=== PATIENT | male | born 1950 | race Caucasian/White ===

== ENCOUNTER 2022-02-09 23:33 | Emergency (ER) | payer MEDICARE, BC ==
[~2022-02-09] VITALS: Ht 185.4 cm; Wt 83.5 kg
[2022-02-10 00:57] LABS: BASOPHILS ABSOLUTE AUTO 0.03 K/mm3 (0.00-0.23); BASOPHILS PERCENT AUTO 0 % (0-2); EOSINOPHILS ABSOLUTE AUTO 0.16 K/mm3 (0.00-0.68); EOSINOPHILS PERCENT AUTO 2 % (0-6); Hematocrit 39.3 % (37.0-53.0); Hemoglobin 13.3 g/dL (13.5-17.5); IMMATURE GRAN ABSOLUTE AUTO 0.03 K/mm3 (0.00-0.10); IMMATURE GRAN PERCENT AUTO 0 % (0-1); LYMPHOCYTES ABSOLUTE AUTO 2.31 K/mm3 (0.84-5.20); LYMPHOCYTES PERCENT AUTO 25 % (21-46); MONOCYTES ABSOLUTE AUTO 0.66 K/mm3 (0.16-1.47); MONOCYTES PERCENT AUTO 7 % (4-13); Mean Corpuscular HGB 33.5 pg (26.0-34.0); Mean Corpuscular HGB Conc 33.8 g/dL (31.5-36.5); Mean Corpuscular Volume 99 fL (80-100); Mean Platelet Volume 10.3 fL (9.1-12.4); NEUTROPHILS ABSOLUTE AUTO 6.11 K/mm3 (1.96-9.15); NEUTROPHILS PERCENT AUTO 66 % (41-73); Platelet Count 230 K/mm3 (150-400); RDW Coefficient Variation 13.4 % (11.7-14.2); RDW Standard Deviation 48.6 fL (35.1-46.3); Red Blood Cell Count 3.97 M/mm3 (4.30-5.90)
[2022-02-10 03:03] LABS: Albumin, Blood 3.4 g/dL (3.4-5.0); Bilirubin, Total 0.1 mg/dL (0.1-1.0); Bun/Creatinine Ratio 20.9 (12.0-20.0); Creatinine, Blood 0.77 mg/dL (0.60-1.20); Globulin, Blood 3.5 g/dL (2.2-4.0); Potassium, Blood 3.8 mmol/L (3.5-5.5); Total Protein, Blood 6.9 g/dL (6.4-8.2)
== END 2022-02-10 06:40 | disposition home or self-care (01) ==
LOC: ER 23:33
PROVIDERS: Student in an Organized Health Care Education/Training Program
DX: R42 Dizziness and giddiness (principal); R07.89 Other chest pain; R00.2 Palpitations; I10 Essential (primary) hypertension; R06.02 Shortness of breath; F17.210 Nicotine dependence, cigarettes, uncomplicated
CPT/HCPCS: 36415; 71046; 80053; 84484; 85025; 93005; 93010; 99285-25

== ENCOUNTER 2022-03-18 23:24 | Inpatient (IN) | payer MEDICARE, BC ==
[~2022-03-18] VITALS: Ht 185.4 cm; Wt 85.9 kg
[2022-03-19] MEDS ORDERED: PHENY100ER PO (00:22)
[2022-03-19] MEDS ORDERED: Nexium40 MG PO (00:23)
[2022-03-19] MEDS ORDERED: Avapro150 MG (00:23)
[2022-03-19] MEDS ORDERED: TAMS.4ER PO (00:23)
[2022-03-19] MEDS ORDERED: Zocor20 MG PO (00:23)
[2022-03-19] MEDS ORDERED: DICL75ER PO (00:24)
[2022-03-19 00:26] LABS: BASOPHILS ABSOLUTE AUTO 0.05 K/mm3 (0.00-0.23); BASOPHILS PERCENT AUTO 1 % (0-2); EOSINOPHILS ABSOLUTE AUTO 0.17 K/mm3 (0.00-0.68); EOSINOPHILS PERCENT AUTO 2 % (0-6); Hematocrit 40.6 % (37.0-53.0); IMMATURE GRAN ABSOLUTE AUTO 0.02 K/mm3 (0.00-0.10); IMMATURE GRAN PERCENT AUTO 0 % (0-1); LYMPHOCYTES ABSOLUTE AUTO 2.03 K/mm3 (0.84-5.20); LYMPHOCYTES PERCENT AUTO 20 % (21-46); MONOCYTES PERCENT AUTO 8 % (4-13); Mean Corpuscular HGB 33.8 pg (26.0-34.0); Mean Corpuscular HGB Conc 34.5 g/dL (31.5-36.5); Mean Corpuscular Volume 98 fL (80-100); Mean Platelet Volume 10.1 fL (9.1-12.4); NEUTROPHILS ABSOLUTE AUTO 7.32 K/mm3 (1.96-9.15); NEUTROPHILS PERCENT AUTO 71 % (41-73); Platelet Count 223 K/mm3 (150-400); RDW Standard Deviation 46.9 fL (35.1-46.3); Red Blood Cell Count 4.14 M/mm3 (4.30-5.90); White Blood Cell Count 10.39 K/mm3 (4.00-11.30)
[2022-03-19 00:40] LABS: Albumin, Blood 3.5 g/dL (3.4-5.0); Albumin/Globulin Ratio 0.9 (0.8-1.8); Bilirubin, Total 0.2 mg/dL (0.1-1.0); Bun/Creatinine Ratio 24.4 (12.0-20.0); Calcium, Blood 8.6 mg/dL (8.5-10.1); Creatinine, Blood 0.7 mg/dL (0.60-1.20); Globulin, Blood 3.8 g/dL (2.2-4.0); Potassium, Blood 3.7 mmol/L (3.5-5.5); Total Protein, Blood 7.3 g/dL (6.4-8.2)
[2022-03-19 04:56] LABS: Anti-Xa UFH, PHA Monitoring <0.10 IU/mL; International Normalized Ratio 1.01; Prothrombin Time Results 10.6 Sec (9.7-11.5)
[2022-03-19 05:48] LABS: BASOPHILS ABSOLUTE AUTO 0.03 K/mm3 (0.00-0.23); BASOPHILS PERCENT AUTO 0 % (0-2); EOSINOPHILS PERCENT AUTO 1 % (0-6); Hematocrit 39.6 % (37.0-53.0); Hemoglobin 13.6 g/dL (13.5-17.5); IMMATURE GRAN ABSOLUTE AUTO 0.03 K/mm3 (0.00-0.10); IMMATURE GRAN PERCENT AUTO 0 % (0-1); LYMPHOCYTES ABSOLUTE AUTO 1.56 K/mm3 (0.84-5.20); LYMPHOCYTES PERCENT AUTO 17 % (21-46); MONOCYTES ABSOLUTE AUTO 0.45 K/mm3 (0.16-1.47); MONOCYTES PERCENT AUTO 5 % (4-13); Mean Corpuscular HGB 33.8 pg (26.0-34.0); Mean Corpuscular HGB Conc 34.3 g/dL (31.5-36.5); Mean Corpuscular Volume 99 fL (80-100); Mean Platelet Volume 10.5 fL (9.1-12.4); NEUTROPHILS ABSOLUTE AUTO 6.91 K/mm3 (1.96-9.15); NEUTROPHILS PERCENT AUTO 76 % (41-73); Platelet Count 221 K/mm3 (150-400); RDW Standard Deviation 47.5 fL (35.1-46.3); Red Blood Cell Count 4.02 M/mm3 (4.30-5.90); White Blood Cell Count 9.08 K/mm3 (4.00-11.30)
[2022-03-19 06:09] LABS: Albumin, Blood 3.4 g/dL (3.4-5.0); Albumin/Globulin Ratio 0.9 (0.8-1.8); Bilirubin, Total 0.3 mg/dL (0.1-1.0); Bun/Creatinine Ratio 22.1 (12.0-20.0); Calcium, Blood 8.7 mg/dL (8.5-10.1); Creatinine, Blood 0.68 mg/dL (0.60-1.20); Globulin, Blood 3.9 g/dL (2.2-4.0); Potassium, Blood 4.2 mmol/L (3.5-5.5); Total Protein, Blood 7.3 g/dL (6.4-8.2)
--- NOTE | 2022-03-19 06:38 | NUR ---
PATIENT ALERT AND ORIENTED, ARRIVED FROM ED AT 0435, INDEPENDENT, TELE PLACED ON PATIENT AND SR @78, ROOM AIR, 20 RAC, STARTED HEPARIN GTT AT 15 UNITS, PATIENT ADMITTED FOR A NSTEMI, NO CHEST PAIN AT THIS TIME, TROP , CURRENT EVERYDAY CIGARETT AND MARIJUANA SMOKER, NPO EXCEPT MEDS. NO EVENTS
--- NOTE | 2022-03-19 19:14 | NUR ---
PT ALERT NO S/S OF ACUTE DISTRESS, SAFETY MEASURES IN PLACE. REPORT GIVEN TO ON COMING NURSE.
[2022-03-19] MEDS ORDERED: DIAZ2 PO (20:18)
--- NOTE | 2022-03-19 20:24 | NUR ---
SPOKE WITH [facility] ([facility]) REGARDING PATIENTS REQUEST FOR A DOSE OF VALIUM. PATIENT TAKES 4MG PO HS AT HOME AND I UPDATED MED REC. ORDERS GIVEN FOR ONE TIME DOSE
--- NOTE | 2022-03-20 06:28 | NUR ---
PATIENT ALERT AND ORIENTED AND PLEASANT, INDEPENDENT, ROOM AIR, SR ON TELE, 20 RAC W/ HEPARIN AT 15 UNITS, VALIUM ONE TIME DOSE GIVEN AND MEDICATION REC UPDATED WITH HOME MED, PATIENT NPO FOR BUSINESS SUPPORT LIAISON PROCEDURE TODAY. NO EVENTS OVERNIGHT
--- NOTE | 2022-03-20 07:18 | NUR ---
STOPPED HEPARIN GTT AT 0700 FOR CARDIAC PROCEDURE TODAY
--- NOTE | 2022-03-20 07:24 | NUR ---
CALLED PHARMACY AND UPDATED THAT HEPARIN GTT STOPPED AT 0700. PHARMACY ASKED US TO NOTIFY THEM WHEN PATIENT COMES BACK TO FLOOR FROM AUTOMATIC PROFILE SHAPER OPERATOR, SO HEPARIN CAN BE RESTARTED. INFORMED GEOVANNY HYDE
--- NOTE | 2022-03-20 10:42 | NUR ---
TRANSFER PATIENT TAKEN TO PATIENT ACCOUNTS MANAGER THIS MORNING. CONFIRMED NPO. AT BEDSIDE AND WENT WITH PATIENT. BELONGINGS SENT WITH PATIENT. PATIENT BEING TRANSFERRED TO PCU 03 AFTER PROCEDURE. REPORT GIVEN TO BARRETT WORKMAN. PATIENT IS A&O X4, IND IN THE ROOM. PHARMACY INFORMED OF HEP. DRIP BEING STOPPED THIS MORNING.
--- NOTE | 2022-03-20 18:07 | NUR ---
END OF SHIFT: PATIENT IS ALERT AND ORIENTED. RIGHT RADIAL SITE IS RECOVERED. NO OOZING, TENDERNESS, OR HEMATOMA. SOME SORENESS THROUGH ELBOW BUT IS IMPROVING. PATIENT IS ON RA NO ISSUES OF DISTRESS. PATIENT HAS BEEN PLEASANT COOPERATIVE WITH CARE, ABLE TO MAKE NEEDS KNOWN. NO CONCERNS FROM THIS RN OR THE RCA STENTING AT THIS TIME.
--- NOTE | 2022-03-21 01:22 | NUR ---
PHYSICIAN COMMUNICATION NOTIFIED DR TENORIO THAT PATIENT'S BLOOD PRESSURE CAME DOWN TO 131/67 AFTER ADMINISTERING A ONE TIME DOSE OF 2.[address] TENORIO WILL MONITOR FOR NOW AND RECHECK BLOOD PRESSURE AGAIN IN ONE HOUR.
--- NOTE | 2022-03-21 05:12 | NUR ---
PHYSICIAN COMMUNICATION NOTIFIED DR TENORIO THAT PATIENT'S BLOOD PRESSURE WAS 147/68. DR TENORIO TO PUT IN ORDERS.
--- NOTE | 2022-03-21 06:11 | NUR ---
SHIFT SUMMARY PATIENT ALERT AND ORIENTED. MEDICATED PER EMAR FOR PAIN AND BLOOD PRESSURE. WILL CONTINUE TO MONITOR. PATIENT HAD NO COMPLAINTS OF SHORTNESS OF BREATH. CALL LIGHT WITHIN REACH.
[2022-03-21] MEDS ORDERED: ASPI81CH PO (10:53)
[2022-03-21] MEDS ORDERED: METO25ER PO (10:53)
[2022-03-21] MEDS ORDERED: CLOP75 PO (10:54)
--- NOTE | 2022-03-21 12:04 | NUR ---
PT DISCHARGE TO HOME WITH DISCHARGE ORDERS, PRESCRIPTION SENT TO [facility], ALL DISCHARGE INSTRUCTIONS AND NEW MEDICATIONS DISCLOSED WITH BOTH AND PT, BOTH VERBALIZED UNDERSTANDING, TO FOLLOW-UP WITH PCP AND VITREO RETINAL SURGEON WITHIN 2 WEEKS. RIGHT RADIAL SITE CARE INSTRUCTIONS PROVIDED. ALL BELONGINGS SENT WITH THE PT, ACCOMPANIED VIA WHEELCHAIR FOR TRANSPORT
== END 2022-03-21 11:28 | disposition home or self-care (01) | DRG 247 ==
LOC: ER 23:24 → MEDS 03-19 04:11 → ERHOLD 03-19 04:11 → MEDS 03-19 04:39 → PCU 03-20 10:35 → ENPENDDIS 03-21 09:33 → PCU 03-21 11:28
PROVIDERS: Emergency Medicine; Family Medicine; ADMIT Internal Medicine
PROC: 027034Z Dilation of Coronary Artery, One Artery with Drug-eluting Intraluminal Device, Percutaneous Approach (ICD-10-PCS; principal; 2022-03-20)
PROC: 02F03ZZ Fragmentation in Coronary Artery, One Artery, Percutaneous Approach (ICD-10-PCS; 2022-03-20)
PROC: 4A023N7 Measurement of Cardiac Sampling and Pressure, Left Heart, Percutaneous Approach (ICD-10-PCS; 2022-03-20)
PROC: B211YZZ Fluoroscopy of Multiple Coronary Arteries using Other Contrast (ICD-10-PCS; 2022-03-20)
PROC: B24BZZ3 Ultrasonography of Heart with Aorta, Intravascular (ICD-10-PCS; 2022-03-20)
DX: I21.4 Non-ST elevation (NSTEMI) myocardial infarction (principal); Z28.21 Immunization not carried out because of patient refusal; G40.909 Epilepsy, unspecified, not intractable, without status epilepticus; K21.9 Gastro-esophageal reflux disease without esophagitis; I10 Essential (primary) hypertension; F17.210 Nicotine dependence, cigarettes, uncomplicated; N40.0 Benign prostatic hyperplasia without lower urinary tract symptoms; F32.A Depression, unspecified; F41.9 Anxiety disorder, unspecified; I25.10 Atherosclerotic heart disease of native coronary artery without angina pectoris; Z87.19 Personal history of other diseases of the digestive system; Z98.890 Other specified postprocedural states; Z79.899 Other long term (current) drug therapy
CPT/HCPCS: 36415; 71045; 76937; 80053; 80185; 80186; 84484; 85025; 85347; 85520; 85610; 93005; 93010; 93306; 93454; 96374; 96376; 99152; 99153; 99285-25; A9270; C1725; C1761; C1769; C1874; C1887; C1894; C9113; C9600; C9602; G0378; J1170; J1644; J1885; J2250; J3010; J7030; J7050; Q9967

== ENCOUNTER 2022-03-27 22:21 | Emergency (ER) | payer MEDICARE, BC ==
[~2022-03-27] VITALS: Ht 185.4 cm; Wt 83.9 kg
[~2022-03-27 22:21] MED LIST: ASPI81CH PO; Avapro150 MG; CLOP75 PO; DIAZ2 PO; DICL75ER PO; METO25ER PO; Nexium40 MG PO; PHENY100ER PO; TAMS.4ER PO; Zocor20 MG PO
[2022-03-27 23:00] LABS: BASOPHILS ABSOLUTE AUTO 0.08 K/mm3 (0.00-0.23); BASOPHILS PERCENT AUTO 1 % (0-2); EOSINOPHILS ABSOLUTE AUTO 0.14 K/mm3 (0.00-0.68); EOSINOPHILS PERCENT AUTO 2 % (0-6); Hematocrit 38.5 % (37.0-53.0); Hemoglobin 13.2 g/dL (13.5-17.5); IMMATURE GRAN ABSOLUTE AUTO 0.02 K/mm3 (0.00-0.10); IMMATURE GRAN PERCENT AUTO 0 % (0-1); LYMPHOCYTES ABSOLUTE AUTO 2.48 K/mm3 (0.84-5.20); LYMPHOCYTES PERCENT AUTO 33 % (21-46); MONOCYTES ABSOLUTE AUTO 0.65 K/mm3 (0.16-1.47); MONOCYTES PERCENT AUTO 9 % (4-13); Mean Corpuscular HGB 33.3 pg (26.0-34.0); Mean Corpuscular HGB Conc 34.3 g/dL (31.5-36.5); Mean Corpuscular Volume 97 fL (80-100); Mean Platelet Volume 10.3 fL (9.1-12.4); NEUTROPHILS ABSOLUTE AUTO 4.19 K/mm3 (1.96-9.15); NEUTROPHILS PERCENT AUTO 55 % (41-73); Platelet Count 251 K/mm3 (150-400); RDW Coefficient Variation 12.7 % (11.7-14.2); RDW Standard Deviation 45.2 fL (35.1-46.3); Red Blood Cell Count 3.96 M/mm3 (4.30-5.90); White Blood Cell Count 7.56 K/mm3 (4.00-11.30)
[2022-03-27 23:17] LABS: Albumin, Blood 3.7 g/dL (3.4-5.0); Bilirubin, Total 0.2 mg/dL (0.1-1.0); Bun/Creatinine Ratio 23.7 (12.0-20.0); Calcium, Blood 8.6 mg/dL (8.5-10.1); Creatinine, Blood 0.76 mg/dL (0.60-1.20); Globulin, Blood 3.7 g/dL (2.2-4.0); Potassium, Blood 3.5 mmol/L (3.5-5.5); Total Protein, Blood 7.4 g/dL (6.4-8.2)
== END 2022-03-28 02:08 | disposition home or self-care (01) ==
LOC: ER 22:21
PROVIDERS: Student in an Organized Health Care Education/Training Program
DX: R07.9 Chest pain, unspecified (principal); I10 Essential (primary) hypertension; N40.0 Benign prostatic hyperplasia without lower urinary tract symptoms; I25.10 Atherosclerotic heart disease of native coronary artery without angina pectoris; I25.2 Old myocardial infarction; F17.210 Nicotine dependence, cigarettes, uncomplicated; Z95.5 Presence of coronary angioplasty implant and graft; Z88.8 Allergy status to other drugs, medicaments and biological substances; Z79.899 Other long term (current) drug therapy; Z79.82 Long term (current) use of aspirin
CPT/HCPCS: 36415; 71045; 80053; 84484; 85025; 93005; 93010; 99285-25; A9270

== ENCOUNTER → 2022-09-25 | Outpatient (CLI) | payer MEDICARE, BC ==
[~2022-09-25] MED LIST changes: -Avapro150 MG; +Avapro150 MG PO; +NITR.4SL SL
== END | disposition home or self-care (01) ==
LOC: LAB SHORT 12:48 → LAB 12:48
DX: E11.9 Type 2 diabetes mellitus without complications (principal)
CPT/HCPCS: 83036

== ENCOUNTER 2022-12-09 20:17 | Emergency (ER) | payer MEDICARE, BC ==
[~2022-12-09] VITALS: Ht 185.4 cm; Wt 94.3 kg
[2022-12-09 20:30] VITALS: BP 178/75
== END 2022-12-09 20:56 | disposition home or self-care (01) ==
LOC: ER 20:17
DX: S00.512A Abrasion of oral cavity, initial encounter (principal); X58.XXXA Exposure to other specified factors, initial encounter; Z88.8 Allergy status to other drugs, medicaments and biological substances; Z79.899 Other long term (current) drug therapy; Z79.82 Long term (current) use of aspirin; I10 Essential (primary) hypertension; K21.9 Gastro-esophageal reflux disease without esophagitis; G40.909 Epilepsy, unspecified, not intractable, without status epilepticus; I25.10 Atherosclerotic heart disease of native coronary artery without angina pectoris; I25.2 Old myocardial infarction; F17.210 Nicotine dependence, cigarettes, uncomplicated
CPT/HCPCS: 99282

== ENCOUNTER → 2023-05-31 | Outpatient (CLI) | payer MEDICARE, BC ==
[~2023-05-31] MED LIST changes: +ACET500 PO; +ATOR40TA PO; +COQ-10100 MG PO; +DOCU100 PO; +GUAI600T33 PO; +HYDMOR2 PO; +LIDOCAINE1 EAC1 TOP; +NARCAN4 M1; +ONDA4 PO
== END | disposition home or self-care (01) ==
LOC: LAB 12:45 → LAB SHORT 12:45
DX: T81.30XA Disruption of wound, unspecified, initial encounter (principal)
CPT/HCPCS: 87070; 87075; 87205

== ENCOUNTER 2023-06-02 18:54 | Emergency (ER) | payer MEDICARE, BC ==
[~2023-06-02] VITALS: Ht 185.4 cm; Wt 87.5 kg
[~2023-06-02 18:54] MED LIST changes: -NARCAN4 M1
[2023-06-02 19:38] LABS: BASOPHILS ABSOLUTE AUTO 0.07 K/mm3 (0.00-0.23); BASOPHILS PERCENT AUTO 1 % (0-2); EOSINOPHILS ABSOLUTE AUTO 0.37 K/mm3 (0.00-0.68); EOSINOPHILS PERCENT AUTO 5 % (0-6); Hemoglobin 14.1 g/dL (13.5-17.5); IMMATURE GRAN ABSOLUTE AUTO 0.03 K/mm3 (0.00-0.10); IMMATURE GRAN PERCENT AUTO 0 % (0-1); LYMPHOCYTES ABSOLUTE AUTO 2.07 K/mm3 (0.84-5.20); LYMPHOCYTES PERCENT AUTO 27 % (21-46); MONOCYTES ABSOLUTE AUTO 0.58 K/mm3 (0.16-1.47); MONOCYTES PERCENT AUTO 8 % (4-13); Mean Corpuscular HGB Conc 33.6 g/dL (31.5-36.5); Mean Corpuscular Volume 98 fL (80-100); Mean Platelet Volume 9.7 fL (9.1-12.4); NEUTROPHILS ABSOLUTE AUTO 4.47 K/mm3 (1.96-9.15); NEUTROPHILS PERCENT AUTO 59 % (41-73); Platelet Count 369 K/mm3 (150-400); RDW Coefficient Variation 13.3 % (11.7-14.2); RDW Standard Deviation 48.6 fL (35.1-46.3); Red Blood Cell Count 4.27 M/mm3 (4.30-5.90); White Blood Cell Count 7.59 K/mm3 (4.00-11.30)
[2023-06-02] MEDS ORDERED: PHENY100ER PO (19:44)
[2023-06-02 20:01] LABS: Albumin, Blood 4.1 g/dL (3.4-5.0); Albumin/Globulin Ratio 1.1 (0.8-1.8); Bilirubin, Total 0.3 mg/dL (0.1-1.0); Bun/Creatinine Ratio 11.7 (12.0-20.0); Calcium, Blood 9.3 mg/dL (8.5-10.1); Creatinine, Blood 0.85 mg/dL (0.60-1.20); Globulin, Blood 3.6 g/dL (2.2-4.0); Potassium, Blood 4.1 mmol/L (3.5-5.5); Total Protein, Blood 7.7 g/dL (6.4-8.2)
[2023-06-02] MEDS ORDERED: HYDROmorphone HCl/Pf 1MG SYR IV ONE ×2 (20:40→21:45)
[2023-06-02] MEDS ORDERED: NARCAN4 M1 (22:17)
[2023-06-02] MEDS ORDERED: Acetaminophen 500 MG Tab PO ONE (22:20)
[2023-06-02] MEDS ORDERED: Ketorolac Tromethamine 30mg Vial IV ONE (22:20)
[2023-06-02 22:30] VITALS: BP 146/76
== END 2023-06-02 22:59 | disposition home or self-care (01) ==
LOC: ER 18:54
PROVIDERS: Physician Assistant
DX: G89.18 Other acute postprocedural pain (principal); R07.89 Other chest pain; Z88.8 Allergy status to other drugs, medicaments and biological substances; Z79.899 Other long term (current) drug therapy; Z79.82 Long term (current) use of aspirin; I10 Essential (primary) hypertension; K21.9 Gastro-esophageal reflux disease without esophagitis; G40.909 Epilepsy, unspecified, not intractable, without status epilepticus; I25.10 Atherosclerotic heart disease of native coronary artery without angina pectoris; Z87.891 Personal history of nicotine dependence
CPT/HCPCS: 71046; 80053; 85025; 96374; 96375; 96376; 99284-25; A9270; J1170; J1885

== ENCOUNTER 2023-06-07 19:54 | Emergency (ER) | payer MEDICARE, BC ==
[~2023-06-07] VITALS: Ht 185.4 cm; Wt 87.5 kg
[~2023-06-07 19:54] MED LIST changes: +NARCAN4 M1
[2023-06-07 20:07] VITALS: BP 127/84
[2023-06-07] MEDS ORDERED: HYDROmorphone HCl 2 MG Tab PO ONE (21:05)
== END 2023-06-07 21:13 | disposition home or self-care (01) ==
LOC: ER 19:54
DX: G89.29 Other chronic pain (principal); R07.81 Pleurodynia; Z79.890 Hormone replacement therapy; I10 Essential (primary) hypertension; G40.909 Epilepsy, unspecified, not intractable, without status epilepticus; K21.9 Gastro-esophageal reflux disease without esophagitis; I25.10 Atherosclerotic heart disease of native coronary artery without angina pectoris; I25.2 Old myocardial infarction; Z87.891 Personal history of nicotine dependence; Z88.8 Allergy status to other drugs, medicaments and biological substances; Z88.1 Allergy status to other antibiotic agents
CPT/HCPCS: 99282

== ENCOUNTER → 2023-12-10 | Outpatient (CLI) | payer MEDICARE, BC | END | disposition home or self-care (01) | LOC: LAB 07:55 → LAB SHORT 07:55 | DX: L57.0 Actinic keratosis (principal); L98.9 Disorder of the skin and subcutaneous tissue, unspecified | CPT/HCPCS: 88305 ==

== ENCOUNTER 2024-01-11 08:13 | Emergency (ER) | payer MEDICARE, BC ==
[~2024-01-11] VITALS: Ht 185.4 cm; Wt 86.2 kg
[2024-01-11] MEDS ORDERED: Methyl Salicylate/Menth/Camph 57 GM TUBE TOP ONE (10:15)
[2024-01-11] MEDS ORDERED: Ketorolac Tromethamine 30mg Vial IV ONE (10:15)
[2024-01-11] MEDS ORDERED: Methocarbamol 500 MG Tab PO ONE (10:15)
[2024-01-11 10:39] LABS: BASOPHILS ABSOLUTE AUTO 0.04 K/mm3 (0.00-0.23); BASOPHILS PERCENT AUTO 1 % (0-2); EOSINOPHILS ABSOLUTE AUTO 0.16 K/mm3 (0.00-0.68); EOSINOPHILS PERCENT AUTO 3 % (0-6); Hematocrit 39.8 % (37.0-53.0); Hemoglobin 13.5 g/dL (13.5-17.5); IMMATURE GRAN ABSOLUTE AUTO 0.04 K/mm3 (0.00-0.10); IMMATURE GRAN PERCENT AUTO 1 % (0-1); LYMPHOCYTES ABSOLUTE AUTO 1.72 K/mm3 (0.84-5.20); LYMPHOCYTES PERCENT AUTO 27 % (21-46); MONOCYTES ABSOLUTE AUTO 0.46 K/mm3 (0.16-1.47); MONOCYTES PERCENT AUTO 7 % (4-13); Mean Corpuscular HGB 33.1 pg (26.0-34.0); Mean Corpuscular HGB Conc 33.9 g/dL (31.5-36.5); Mean Corpuscular Volume 98 fL (80-100); Mean Platelet Volume 10.2 fL (9.1-12.4); NEUTROPHILS PERCENT AUTO 62 % (41-73); Platelet Count 184 K/mm3 (150-400); RDW Coefficient Variation 12.7 % (11.7-14.2); RDW Standard Deviation 45.8 fL (35.1-46.3); Red Blood Cell Count 4.08 M/mm3 (4.30-5.90); White Blood Cell Count 6.32 K/mm3 (4.00-11.30)
[2024-01-11 10:56] LABS: Albumin, Blood 3.6 g/dL (3.4-5.0); Albumin/Globulin Ratio 1.1 (0.8-1.8); Bilirubin, Total 0.3 mg/dL (0.1-1.0); Bun/Creatinine Ratio 13.4 (12.0-20.0); Calcium, Blood 8.6 mg/dL (8.5-10.1); Creatinine, Blood 0.6 mg/dL (0.60-1.20); Globulin, Blood 3.4 g/dL (2.2-4.0); Potassium, Blood 3.9 mmol/L (3.5-5.5)
[2024-01-11] MEDS ORDERED: FLUT1DIS2 INH (11:04)
[2024-01-11] MEDS ORDERED: KRILL OIL 5001 EAC1 PO (11:07)
[2024-01-11] MEDS ORDERED: [UNRECOGNIZED DRUG - OTHER] PO (11:07)
[2024-01-11 11:09] VITALS: BP 165/84
[2024-01-11] MEDS ORDERED: Robaxin750 MG PO (12:57)
== END 2024-01-11 13:11 | disposition home or self-care (01) ==
LOC: ER 08:13
PROVIDERS: Physician Assistant
DX: R07.89 Other chest pain (principal); M62.830 Muscle spasm of back; I10 Essential (primary) hypertension; K21.9 Gastro-esophageal reflux disease without esophagitis; Z87.891 Personal history of nicotine dependence; Z79.899 Other long term (current) drug therapy; Z79.82 Long term (current) use of aspirin; Z88.8 Allergy status to other drugs, medicaments and biological substances
CPT/HCPCS: 71046; 80053; 84484; 85025; 93005; 93010; 96374; 99285-25; A9270; J1885

== ENCOUNTER 2024-02-29 05:48 | Day surgery (SDC) | payer MEDICARE, BC ==
[2024-02-29] VITALS (21 sets, daily range): BP systolic 97–149; BP diastolic 54–88
[~2024-02-29] VITALS: Ht 185.4 cm; Wt 87.4 kg
[~2024-02-29 05:48] MED LIST changes: +FLUT1DIS2 INH; +KRILL OIL 5001 EAC1 PO; +Robaxin750 MG PO; +[UNRECOGNIZED DRUG - OTHER] PO
[2024-02-29] MEDS ORDERED: Lactated Ringer's 1,000 ML IV SCH (06:20)
[2024-02-29] MEDS ORDERED: CeFAZolin Sodium 2,000 MG in NS 100 ML IV SCH (06:20)
[2024-02-29] MEDS ORDERED: HYDROCODONE-AC1 EA19 PO (06:26)
[2024-02-29] MEDS ORDERED: ESOM20 PO (06:29)
[2024-02-29] MEDS ORDERED: propofoL 20 ML IV ONE (06:59)
[2024-02-29] MEDS ORDERED: Ondansetron HCl 2 MG / ML 2ML Vial ONE (06:59)
[2024-02-29] MEDS ORDERED: Lidocaine HCl 2% 20 ML MDV ONE ×2 (06:59→11:12)
[2024-02-29] MEDS ORDERED: FentaNYL Citrate 50 MCG/ML 2 ML Injection ONE ×4 (06:59→09:40)
[2024-02-29] MEDS ORDERED: Dexamethasone Sod Phos 10 MG/ML 1ML VIAL ONE (06:59)
[2024-02-29] MEDS ORDERED: Bupivacaine 0.5% HCl 5 MG/ML 30MLVIAL ONE (07:28)
[2024-02-29] MEDS ORDERED: Phenylephrine HCl 100 MCG/ML-NS 10MLSYR (1MG/10ML) ONE (07:58)
[2024-02-29] MEDS ORDERED: ePHEDrine Sulfate 50 MG/ML 1ML Injection ONE (08:03)
[2024-02-29] MEDS ORDERED: OxyCODONE HCL 5 MG TAB PO PRN (09:10)
[2024-02-29] MEDS ORDERED: HYDROmorphone HCl/Pf 1MG SYR ONE (09:12)
--- NOTE | 2024-02-29 10:21 | NUR ---
0956 RECEIVED PT FROM PACU AWAKE, MOANING GRIMACING AND SHAKING IN PAIN. STATES 11/05 PAIN. VSS, ON 2 L OF 02 VIA N/C. WARM BLANKETS AND BEIR HUGGER ON. AT BEDSIDE 1015 SECOND PAIN PILL GIVEN PAIN STILL 11/[address] NORTH INTO SEE OT AND GAVE 10MG KETAMINE AND PRESIDEX, SEE ANESTHESIA RECORD. OXYGEN DROPPING O2 UPPED TO 8L N/C 1045 SLEEPING WITH MONITORS ON
[2024-02-29] MEDS ORDERED: Dexmedetomidine HCL 200 MCG / 2 ML ONE (10:27)
[2024-02-29] MEDS ORDERED: Ketamine HCl 100 MG / ML 5ML Vial ONE (10:29)
[2024-02-29] MEDS ORDERED: Bupivacaine HCl 2.5 MG/ML 10ML P/F Injection ONE ×2 (11:08)
[2024-02-29] MEDS ORDERED: EpiNEPhrine 1 MG/1 ML 1ML Vial ONE (11:12)
--- NOTE | 2024-02-29 12:37 | NUR ---
1210 ASSIST PT IN CHANGING CLOTHES STANDS WITH WALKER AND MINIMAL WT BEARING ON RT LEG. TRANSFER TO W/C WITH GOOD TECHNIQE
== END 2024-02-29 12:15 | disposition home or self-care (01) ==
LOC: ORSCMMR 05:48 → ORD 07:30 → ORSCMMR 07:30
DX: S76.311A Strain of muscle, fascia and tendon of the posterior muscle group at thigh level, right thigh, initial encounter (principal); E11.9 Type 2 diabetes mellitus without complications; G40.909 Epilepsy, unspecified, not intractable, without status epilepticus; K21.9 Gastro-esophageal reflux disease without esophagitis; Z79.899 Other long term (current) drug therapy; Z87.891 Personal history of nicotine dependence; M25.551 Pain in right hip; Z88.8 Allergy status to other drugs, medicaments and biological substances; Z79.82 Long term (current) use of aspirin; Z95.5 Presence of coronary angioplasty implant and graft
CPT/HCPCS: 73502; 99283-25; A6010; A9270; C1713; J0171; J0690; J1100; J1171; J2371; J2405; J2704; J3010; J7120

== ENCOUNTER 2024-02-29 16:23 | Emergency (ER) | payer MEDICARE, BC ==
[~2024-02-29] VITALS: Ht 185.4 cm; Wt 87.4 kg
[~2024-02-29 16:23] MED LIST changes: +ESOM20 PO; +HYDROCODONE-AC1 EA19 PO
[2024-02-29 17:06] VITALS: BP 145/71
[2024-02-29] MEDS ORDERED: HYDROcodone 10-APAP 325 TAB PO ONE (17:35)
== END 2024-02-29 19:23 | disposition home or self-care (01) ==
LOC: ER 16:23
DX: M25.551 Pain in right hip (principal); Z88.8 Allergy status to other drugs, medicaments and biological substances; Z79.899 Other long term (current) drug therapy; Z79.82 Long term (current) use of aspirin; Z95.5 Presence of coronary angioplasty implant and graft
CPT/HCPCS: 73502; 99283-25; A9270

== ENCOUNTER 2024-11-01 17:20 | Emergency (ER) | payer MEDICARE, BC ==
[~2024-11-01] VITALS: Ht 185.4 cm; Wt 95.2 kg
[2024-11-01 17:57] VITALS: BP 154/99
[2024-11-01] MEDS ORDERED: Lidocaine 2% Jelly Uro-Jet UR ONE (18:55)
== END 2024-11-01 21:45 | disposition home or self-care (01) ==
LOC: ER 17:20
DX: T83.098A Other mechanical complication of other urinary catheter, initial encounter (principal); R33.9 Retention of urine, unspecified; Z88.8 Allergy status to other drugs, medicaments and biological substances; Z87.891 Personal history of nicotine dependence
CPT/HCPCS: 51700; 99283-25

== ENCOUNTER 2024-12-17 22:54 | Observation (INO) | payer MEDICARE, BC ==
[~2024-12-17] VITALS: Ht 185.4 cm; Wt 90.3 kg
[2024-12-17 23:36] LABS: BASOPHILS ABSOLUTE AUTO 0.05 K/mm3 (0.00-0.23); BASOPHILS PERCENT AUTO 1 % (0-2); EOSINOPHILS ABSOLUTE AUTO 0.09 K/mm3 (0.00-0.68); EOSINOPHILS PERCENT AUTO 1 % (0-6); Hematocrit 38.3 % (37.0-53.0); Hemoglobin 13.2 g/dL (13.5-17.5); IMMATURE GRAN ABSOLUTE AUTO 0.02 K/mm3 (0.00-0.10); IMMATURE GRAN PERCENT AUTO 0 % (0-1); LYMPHOCYTES ABSOLUTE AUTO 2.35 K/mm3 (0.84-5.20); LYMPHOCYTES PERCENT AUTO 32 % (21-46); MONOCYTES ABSOLUTE AUTO 0.59 K/mm3 (0.16-1.47); MONOCYTES PERCENT AUTO 8 % (4-13); Mean Corpuscular HGB Conc 34.5 g/dL (31.5-36.5); Mean Corpuscular Volume 96 fL (80-100); NEUTROPHILS ABSOLUTE AUTO 4.22 K/mm3 (1.96-9.15); NEUTROPHILS PERCENT AUTO 58 % (41-73); NRBC ABSOLUTE 0.00 K/mm3 (0.00-0.02); NRBC Auto 0.0 /100 WBC (0.0-0.2); Platelet Count 210 K/mm3 (150-400); RDW Coefficient Variation 13.2 % (11.7-14.2); RDW Standard Deviation 47.4 fL (35.1-46.3)
[2024-12-17 23:55] LABS: Alanine Aminotransfer (ALT/SGP 39.0 U/L (12-78); Albumin, Blood 3.8 g/dL (3.4-5.0); Albumin/Globulin Ratio 1.1 (0.8-1.8); Anion Gap 7.0 mmol/L (3-11); Aspartate Aminotrans (AST/SGOT 22.0 U/L (12-37); Bilirubin, Total 0.2 mg/dL (0.1-1.0); Blood Urea Nitrogen 15.0 mg/dL (8-24); CO2, Blood 26.0 mmol/L (21-32); Calcium, Blood 8.5 mg/dL (8.5-10.1); Chloride, Blood 109.0 mmol/L (98-108); Creatinine, Blood 0.67 mg/dL (0.60-1.20); Globulin, Blood 3.4 g/dL (2.2-4.0); Glucose, Blood 175.0 mg/dL (70-99); Potassium, Blood 3.4 mmol/L (3.5-5.5); Sodium, Blood 139.0 mmol/L (136-145); Total Protein, Blood 7.2 g/dL (6.4-8.2)
[2024-12-18] MEDS ORDERED: Potassium Chloride 10 Meq Tablet SA PO ONE (06:25)
[2024-12-18 08:42] LABS: CHOL/HDL RATIO 2.5; Cholesterol 163 mg/dL (50-200); HDL Cholesterol 65 mg/dL (>39); LDL/HDL RATIO 1.2; Low Density Lipoprotein Chol 76 mg/dL (0-110); Triglycerides 111 mg/dL (30-160); Very Low Density Lipoprot Chol 22 mg/dL (6-32)
[2024-12-18 08:46] VITALS: BP 162/72
[2024-12-18 10:39] VITALS: BP 146/77
[2024-12-18] MEDS ORDERED: HYDROcodone 5-APAP 325 TAB PO PRN (11:35)
[2024-12-18] MEDS ORDERED: Misc. Capsule PO SCH ×2 (14:00→23:00)
[2024-12-18 15:42] VITALS: BP 163/83
[2024-12-18] MEDS ORDERED: Heparin Sodium,Porcine 5,000 UNIT/0.5 ML SDV SC SCH (16:00)
--- NOTE | 2024-12-18 16:17 | NUR ---
Pt. is awake in bed when he welcomed my visit. Pt. is pleasant. Considered matters of ayan as a life review facilitated. 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 Listen with empathy and interest. Pt. displayed evidence of an individual who was aware of his ayan roots, so this nurse staff industrial prayed for the Pt. Pt. verbalized gratitude for the spiritual care visit.
[2024-12-18] MEDS ORDERED: Ondansetron HCl 2 MG / ML 2ML Vial IV PRN (16:45)
--- NOTE | 2024-12-18 17:37 | NUR ---
End of shift summary: Patient is alert and oriented x4; pleasant and cooperative with all care. Patient has denied SOB, CP (except when Stress test completed), N/V/D or pain today. Patient has been oriented to room and call system. Dilantin medication from home in patient drawer d/t only being able to take name brand and hospital only having generic in stock; all medications administered per EMAR. Patient to be NPO after midnight for 2nd part of Stress test and will have breakfast held until he returns. Anton is independent in room and uses cane at baseline. Call light within reach and bed in lowest position. Will continue to monitor until next shift nurse arrives and report is given.
[2024-12-18 19:28] VITALS: BP 179/90
[2024-12-18 23:51] VITALS: BP 170/89
[2024-12-19 04:45] VITALS: BP 154/88
[2024-12-19 07:31] VITALS: BP 132/75
[2024-12-19] MEDS ORDERED: FLUT1DIS5 INH (12:36)
[2024-12-19 12:37] VITALS: BP 144/79
[2024-12-19] MEDS ORDERED: AMLO5 PO (13:31)
[2024-12-19] MEDS ORDERED: METO50 PO (13:32)
--- NOTE | 2024-12-19 14:56 | NUR ---
DISCHARGE PT DISCHARGED HOME. DISCHARGE INSTRUCTIONS REVIEWED WITH PT AND PT SPOUSE BY ADALBERTO RN. PT DENIES HAVING ANY FURTHER QUESTIONS. IV REMOVED AND SITE APPEARS WNL. NEW RX SENT TO [facility] PER PT REQUEST. PT ABLE TO STAND AND AMBULATE INDEPENDENTLY TO AND WHEELED DOWN BY TRANSFER STATION OPERATOR. HOMJE MEDICATION RETURNED TO PT PRIOR TO DISCHARGE.
== END 2024-12-19 14:55 | disposition home or self-care (01) ==
LOC: ER 22:54 → MEDS 22:55 → ENPENDDIS 12-19 13:31 → MEDS 12-19 14:55
PROVIDERS: Emergency Medicine; ADMIT Internal Medicine
DX: I25.110 Atherosclerotic heart disease of native coronary artery with unstable angina pectoris (principal); I25.9 Chronic ischemic heart disease, unspecified; I25.5 Ischemic cardiomyopathy; I10 Essential (primary) hypertension; G40.909 Epilepsy, unspecified, not intractable, without status epilepticus; F41.9 Anxiety disorder, unspecified; N40.0 Benign prostatic hyperplasia without lower urinary tract symptoms; E78.5 Hyperlipidemia, unspecified; K21.9 Gastro-esophageal reflux disease without esophagitis; Z95.5 Presence of coronary angioplasty implant and graft; Z88.8 Allergy status to other drugs, medicaments and biological substances; Z79.82 Long term (current) use of aspirin; Z79.899 Other long term (current) drug therapy; Z87.891 Personal history of nicotine dependence
CPT/HCPCS: 71046; 78452; 80053; 80061; 83690; 84484; 85025; 93005; 93010; 93017; 96372; 96374; 99285-25; A9270; A9500; G0378; J0706; J1644; J2405; J2785

== ENCOUNTER 2025-02-18 21:37 | Emergency (ER) | payer MEDICARE, BC ==
[~2025-02-18] VITALS: Ht 185.4 cm; Wt 93.0 kg
[~2025-02-18 21:37] MED LIST changes: +AMLO5 PO; +FLUT1DIS5 INH; +METO50 PO
[2025-02-18 21:59] LABS: BASOPHILS ABSOLUTE AUTO 0.04 K/mm3 (0.00-0.23); BASOPHILS PERCENT AUTO 1 % (0-2); EOSINOPHILS ABSOLUTE AUTO 0.04 K/mm3 (0.00-0.68); EOSINOPHILS PERCENT AUTO 1 % (0-6); Hematocrit 39.3 % (37.0-53.0); Hemoglobin 13.5 g/dL (13.5-17.5); IMMATURE GRAN ABSOLUTE AUTO 0.00 K/mm3 (0.00-0.10); IMMATURE GRAN PERCENT AUTO 0 % (0-1); LYMPHOCYTES ABSOLUTE AUTO 2.46 K/mm3 (0.84-5.20); LYMPHOCYTES PERCENT AUTO 36 % (21-46); MONOCYTES ABSOLUTE AUTO 0.60 K/mm3 (0.16-1.47); MONOCYTES PERCENT AUTO 9 % (4-13); Mean Corpuscular HGB Conc 34.4 g/dL (31.5-36.5); Mean Corpuscular Volume 96 fL (80-100); NEUTROPHILS ABSOLUTE AUTO 3.71 K/mm3 (1.96-9.15); NEUTROPHILS PERCENT AUTO 54 % (41-73); NRBC ABSOLUTE 0.00 K/mm3 (0.00-0.02); NRBC Auto 0.0 /100 WBC (0.0-0.2); Platelet Count 210 K/mm3 (150-400); RDW Coefficient Variation 12.7 % (11.7-14.2); RDW Standard Deviation 45.3 fL (35.1-46.3)
[2025-02-18 22:23] LABS: Alanine Aminotransfer (ALT/SGP 33.0 U/L (12-78); Albumin, Blood 3.7 g/dL (3.4-5.0); Albumin/Globulin Ratio 1.0 (0.8-1.8); Anion Gap 7.0 mmol/L (3-11); Aspartate Aminotrans (AST/SGOT 21.0 U/L (12-37); Bilirubin, Total 0.2 mg/dL (0.1-1.0); Blood Urea Nitrogen 9.0 mg/dL (8-24); CO2, Blood 26.0 mmol/L (21-32); Calcium, Blood 8.8 mg/dL (8.5-10.1); Chloride, Blood 110.0 mmol/L (98-108); Creatinine, Blood 0.69 mg/dL (0.60-1.20); Globulin, Blood 3.7 g/dL (2.2-4.0); Glucose, Blood 172.0 mg/dL (70-99); Potassium, Blood 3.3 mmol/L (3.5-5.5); Sodium, Blood 140.0 mmol/L (136-145); Total Protein, Blood 7.4 g/dL (6.4-8.2)
[2025-02-19] MEDS ORDERED: Lidocaine 2% Viscous Soln 15 ML UDC PO ONE (02:10)
[2025-02-19] MEDS ORDERED: Pantoprazole Sodium 40 MG Injection IV ONE (02:10)
[2025-02-19] MEDS ORDERED: Potassium Chloride 10 Meq Tablet SA PO ONE (02:40)
[2025-02-19 04:15] VITALS: BP 143/82
[2025-02-19] MEDS ORDERED: PANT40 PO (04:30)
== END 2025-02-19 04:42 | disposition home or self-care (01) ==
LOC: ER 21:37
PROVIDERS: Student in an Organized Health Care Education/Training Program
DX: R07.2 Precordial pain (principal); E78.5 Hyperlipidemia, unspecified; I10 Essential (primary) hypertension; J44.9 Chronic obstructive pulmonary disease, unspecified; Z87.891 Personal history of nicotine dependence; Z79.51 Long term (current) use of inhaled steroids; Z79.82 Long term (current) use of aspirin; Z79.899 Other long term (current) drug therapy; Z88.8 Allergy status to other drugs, medicaments and biological substances
CPT/HCPCS: 71046; 80053; 83690; 83880; 84484; 85025; 93005; 93010; 96374; 99285-25; A9270; J2470

== ENCOUNTER 2025-02-24 20:21 | Observation (INO) | payer MEDICARE ==
[~2025-02-24] VITALS: Ht 185.4 cm; Wt 92.5 kg
[~2025-02-24 20:21] MED LIST changes: +PANT40 PO
[2025-02-24 20:49] LABS: BASOPHILS ABSOLUTE AUTO 0.03 K/mm3 (0.00-0.23); BASOPHILS PERCENT AUTO 0 % (0-2); EOSINOPHILS ABSOLUTE AUTO 0.03 K/mm3 (0.00-0.68); EOSINOPHILS PERCENT AUTO 0 % (0-6); Hematocrit 37.1 % (37.0-53.0); Hemoglobin 12.6 g/dL (13.5-17.5); IMMATURE GRAN ABSOLUTE AUTO 0.02 K/mm3 (0.00-0.10); IMMATURE GRAN PERCENT AUTO 0 % (0-1); LYMPHOCYTES ABSOLUTE AUTO 2.81 K/mm3 (0.84-5.20); LYMPHOCYTES PERCENT AUTO 39 % (21-46); MONOCYTES ABSOLUTE AUTO 0.81 K/mm3 (0.16-1.47); MONOCYTES PERCENT AUTO 11 % (4-13); Mean Corpuscular HGB Conc 34.0 g/dL (31.5-36.5); Mean Corpuscular Volume 97 fL (80-100); NEUTROPHILS ABSOLUTE AUTO 3.45 K/mm3 (1.96-9.15); NEUTROPHILS PERCENT AUTO 48 % (41-73); NRBC ABSOLUTE 0.00 K/mm3 (0.00-0.02); NRBC Auto 0.0 /100 WBC (0.0-0.2); Platelet Count 221 K/mm3 (150-400); RDW Coefficient Variation 12.8 % (11.7-14.2); RDW Standard Deviation 46.2 fL (35.1-46.3)
[2025-02-24 21:02] LABS: Alanine Aminotransfer (ALT/SGP 30.0 U/L (12-78); Albumin, Blood 3.6 g/dL (3.4-5.0); Albumin/Globulin Ratio 1.1 (0.8-1.8); Anion Gap 6.0 mmol/L (3-11); Aspartate Aminotrans (AST/SGOT 18.0 U/L (12-37); Bilirubin, Total 0.3 mg/dL (0.1-1.0); Blood Urea Nitrogen 8.0 mg/dL (8-24); CO2, Blood 28.0 mmol/L (21-32); Calcium, Blood 8.4 mg/dL (8.5-10.1); Chloride, Blood 110.0 mmol/L (98-108); Creatinine, Blood 0.74 mg/dL (0.60-1.20); Globulin, Blood 3.3 g/dL (2.2-4.0); Glucose, Blood 111.0 mg/dL (70-99); Potassium, Blood 3.4 mmol/L (3.5-5.5); Sodium, Blood 141.0 mmol/L (136-145); Total Protein, Blood 6.9 g/dL (6.4-8.2)
[2025-02-24] MEDS ORDERED: Ondansetron HCl 2 MG / ML 2ML Vial IV PRN (23:45)
[2025-02-25] VITALS (8 sets, daily range): BP systolic 134–170; BP diastolic 69–89
[2025-02-25] MEDS ORDERED: FLU VACC TS2025(65UP)/MF59C/PF 45 MCG/0.5 ML SYRINGE IM SCH (00:05)
[2025-02-25 05:44] LABS: BASOPHILS ABSOLUTE AUTO 0.03 K/mm3 (0.00-0.23); BASOPHILS PERCENT AUTO 1 % (0-2); EOSINOPHILS ABSOLUTE AUTO 0.03 K/mm3 (0.00-0.68); EOSINOPHILS PERCENT AUTO 1 % (0-6); Hematocrit 37.7 % (37.0-53.0); Hemoglobin 12.9 g/dL (13.5-17.5); IMMATURE GRAN ABSOLUTE AUTO 0.02 K/mm3 (0.00-0.10); IMMATURE GRAN PERCENT AUTO 0 % (0-1); LYMPHOCYTES ABSOLUTE AUTO 1.77 K/mm3 (0.84-5.20); LYMPHOCYTES PERCENT AUTO 30 % (21-46); MONOCYTES ABSOLUTE AUTO 0.44 K/mm3 (0.16-1.47); MONOCYTES PERCENT AUTO 7 % (4-13); Mean Corpuscular HGB Conc 34.2 g/dL (31.5-36.5); Mean Corpuscular Volume 96 fL (80-100); NEUTROPHILS ABSOLUTE AUTO 3.63 K/mm3 (1.96-9.15); NEUTROPHILS PERCENT AUTO 61 % (41-73); NRBC ABSOLUTE 0.00 K/mm3 (0.00-0.02); NRBC Auto 0.0 /100 WBC (0.0-0.2); RDW Coefficient Variation 12.9 % (11.7-14.2); RDW Standard Deviation 45.3 fL (35.1-46.3)
--- NOTE | 2025-02-25 05:52 | NUR ---
Shift Summary - Events: New admission this shift. Patient was oriented to the room and rested throughout the shift. No additional incidents of chest pain reported. - Orientation: A/Ox4. - Ambulation: Independent. - Medication: Taken whole with water. - Toileting: Continent x2.
[2025-02-25 05:53] LABS: Platelet Count 181 K/mm3 (150-400)
[2025-02-25 05:56] LABS: Alanine Aminotransfer (ALT/SGP 28.0 U/L (12-78); Albumin, Blood 3.6 g/dL (3.4-5.0); Albumin/Globulin Ratio 1.1 (0.8-1.8); Anion Gap 7.0 mmol/L (3-11); Aspartate Aminotrans (AST/SGOT 14.0 U/L (12-37); Bilirubin, Total 0.2 mg/dL (0.1-1.0); Blood Urea Nitrogen 6.0 mg/dL (8-24); CO2, Blood 28.0 mmol/L (21-32); Calcium, Blood 8.8 mg/dL (8.5-10.1); Chloride, Blood 112.0 mmol/L (98-108); Creatinine, Blood 0.65 mg/dL (0.60-1.20); Globulin, Blood 3.2 g/dL (2.2-4.0); Glucose, Blood 132.0 mg/dL (70-99); Magnesium, Blood 2.2 mg/dL (1.6-2.4); Potassium, Blood 4.0 mmol/L (3.5-5.5); Sodium, Blood 143.0 mmol/L (136-145); Total Protein, Blood 6.8 g/dL (6.4-8.2)
--- NOTE | 2025-02-25 08:52 | NUR ---
0850- VERBAL FROM MD BURNHAM TO ORDER 325MG 1-2 TABS Q6 HRS PRN FOR PAIN.
[2025-02-25] MEDS ORDERED: Enoxaparin 40 MG/0.4 ML SYR SC SCH (09:00)
[2025-02-25] MEDS ORDERED: NS 250 ML IV ONE (11:19)
[2025-02-25] MEDS ORDERED: Verapamil HCL 2.5 MG/ML 2ML Injection ONE (11:19)
[2025-02-25] MEDS ORDERED: NS 2,000 ML IV ONE (11:19)
[2025-02-25] MEDS ORDERED: Heparin Sodium 1000 Units/ML 10ML MDV ONE (11:19)
[2025-02-25] MEDS ORDERED: FentaNYL Citrate 50 MCG/ML 2 ML Injection ONE (11:19)
[2025-02-25] MEDS ORDERED: Midazolam HCl 1MG / ML 2ML Vial ONE (11:19)
[2025-02-25] MEDS ORDERED: Nitroglycerin 2 MG/20 ML BTL ONE (11:20)
[2025-02-25] MEDS ORDERED: NiCARdipine HCL 1,000 MCG/5 ML SYR ONE ×2 (11:32→12:08)
[2025-02-25] MEDS ORDERED: Isosorbide Mono30 MG PO (16:37)
[2025-02-25] MEDS ORDERED: FURO20 PO (16:37)
--- NOTE | 2025-02-25 17:15 | NUR ---
PATIENT TRANSPORTED TO PCU 3 FROM RECORDS AND TAPE RECORDINGS ENGINEER BY WHEELCHAIR @1230. ARM IMMOMBILIZER AND TR BAND IN PLACE TO RIGHT RADIAL. NO BLEEDING NOTED DURING TR BAND DEFLATION AND REMOVAL. NO HEMATOMA, SITE IS SOFT AND NONTENDER. TRANSPARENT DRESSING PLACED ON SITE. VSS, A&OX4, CONTINENT AND INDEPENDENT IN THE ROOM. WENT OVER EDUCATION AND DISCHARGE INSTRUCTIONS WITH PATIENT AND , IV REMOVED AND ESCORTED PATIENT TO FRONT DOOR IN A WHEELCHAIR.
[2025-03-02] MEDS ORDERED: FURO20 PO (16:18)
== END 2025-02-25 17:03 | disposition home or self-care (01) ==
LOC: ER 20:21 → ERHOLD 20:22 → MEDS 20:22 → PCU 02-25 12:45
PROVIDERS: Student in an Organized Health Care Education/Training Program; ADMIT Student in an Organized Health Care Education/Training Program
DX: I25.110 Atherosclerotic heart disease of native coronary artery with unstable angina pectoris (principal); I25.2 Old myocardial infarction; I11.9 Hypertensive heart disease without heart failure; G40.909 Epilepsy, unspecified, not intractable, without status epilepticus; K21.9 Gastro-esophageal reflux disease without esophagitis; F41.9 Anxiety disorder, unspecified; N40.0 Benign prostatic hyperplasia without lower urinary tract symptoms; Z66 Do not resuscitate; Z79.82 Long term (current) use of aspirin; Z79.899 Other long term (current) drug therapy; Z87.891 Personal history of nicotine dependence; Z95.5 Presence of coronary angioplasty implant and graft; Z87.19 Personal history of other diseases of the digestive system; Z88.8 Allergy status to other drugs, medicaments and biological substances; Z90.49 Acquired absence of other specified parts of digestive tract
CPT/HCPCS: 36415; 71046; 76937; 80053; 83690; 83735; 84484; 85025; 93005; 93010; 93458; 99152; 99153; 99285-25; A9270; C1769; C1887; C1894; G0378; J1644; J2250; J3010; J7030; J7050; Q9967